=== PATIENT | male | born 1990 | race African-American/Black ===

== ENCOUNTER 2019-07-03 22:14 | Emergency (ER) | payer MEDICAID ==
[~2019-07-03] VITALS: Ht 195.6 cm; Wt 98.0 kg
[2019-07-04 00:44] LABS: BASOPHILS % 0.8 % (0.0-2.0); EOSINOPHILS % 2.2 % (0.0-5.0); HEMATOCRIT. 45.9 % (42.0-52.0); HEMOGLOBIN. 15.5 g/dL (14.0-18.0); LYMPHOCYTES % 24.7 % (20.0-50.0); MEAN CORPUSCULAR HEMOGLOBIN 30.1 pg (28.0-32.0); MEAN PLATELET VOLUME 7.2 fl (7.4-10.4); NEUTROPHILS % 64.3 % (40.0-76.0); PLATELET 356 x1000/uL (130-400); RED BLOOD CELL COUNT 5.15 mill/uL (4.7-6.1); RED CELL DISTRIBUTION WIDTH 13.5 % (11.6-14.6)
[2019-07-04 00:50] LABS: CHLORIDE 105 mEq/L (98-107)
[2019-07-04 00:53] LABS: PARTIAL THROMBOPLASTIN TIME 30.1 sec (23.4-31.0); PROTHROMBIN TIME 10.2 sec (9.6-11.0)
[2019-07-04 03:05] LABS: *AMPHETAMINES SCREEN URINE PRESUMTIVE POSITIVE (NEGATIVE); *BARBITURATES SCREEN URINE NEGATIVE (NEGATIVE); *BENZODIAZEPINES SCREEN URINE NEGATIVE (NEGATIVE); *COCAINE SCREEN URINE PRESUMTIVE POSITIVE (NEGATIVE); METHADONE URINE SCREEN NEGATIVE (NEGATIVE)
[2019-07-04 03:06] LABS: CANNABINOID URINE SCREEN PRESUMTIVE POSITIVE (NEGATIVE); OPIATES URINE SCREEN NEGATIVE (NEGATIVE); PHENCYCLIDINE URINE SCREEN NEGATIVE (NEGATIVE)
[2019-07-04] MEDS ORDERED: IBUPROFEN 800MG TABLET PO ONE (04:15)
[2019-07-04] MEDS ORDERED: FAMOTIDINE 20MG/2ML VIAL IV ONE (04:15)
[2019-07-04] MEDS ORDERED: KETOROLAC 30MG/ML VIAL IV ONE (04:15)
[2019-07-04] MEDS ORDERED: FAMOTIDINE 20MG TABLET PO ONE (04:15)
[2019-07-04 04:31] VITALS: BP 112/61
== END 2019-07-04 04:44 | disposition home or self-care (01) ==
LOC: ER 22:14
DX: R07.89 Other chest pain (principal); F14.10 Cocaine abuse, uncomplicated; F19.10 Other psychoactive substance abuse, uncomplicated; R20.2 Paresthesia of skin; R23.3 Spontaneous ecchymoses; R03.0 Elevated blood-pressure reading, without diagnosis of hypertension; F12.90 Cannabis use, unspecified, uncomplicated; F17.200 Nicotine dependence, unspecified, uncomplicated
CPT/HCPCS: 36415; 71045; 80053; 80305; 84484; 85025; 85610; 85730; 93005; 99284; Z7610